=== PATIENT | female | born 1945 | race Caucasian/White ===

== ENCOUNTER → 2020-05-26 | Outpatient (CLI) | payer OTHER, MEDICARE ==
--- NOTE | 2020-05-26 11:49 | RAD ---
EXAM: Hand,Right 3 Views INDICATION: 74 years Female, HAND PAIN COMPARISON: None available FINDINGS: 3 views of the right hand were performed. Osteopenia. No acute fracture is identified. No joint dislocation. No apparent destructive osseous lesion. A 2 mm sclerotic bone fragment is noted at the tip of the ulnar styloid process, either unfused ulnar styloid ossicle or tiny remote fracture. Scattered mild to moderate degenerative changes in the wrist and hand. No gross soft tissue abnormality. No radiopaque foreign body. IMPRESSION: Scattered mild to moderate degenerative changes in the right hand without acute fracture or dislocation. Electronically signed by: Razia Garcia MD 05/26/2020 11:47 AM [facility]
== END ==
LOC: RAD 08:40
PROVIDERS: ATTEND Orthopaedic Surgery
DX: M19.041 Primary osteoarthritis, right hand (principal)

== ENCOUNTER 2020-06-09 05:30 | Day surgery (SDC) | payer MEDICARE, OTHER ==
[2020-06-09] MEDS ORDERED: LIDOCAINE 1% 10 ML VIAL INJ ONE ×2 (05:31→06:34)
[2020-06-09] MEDS ORDERED: PROPOFOL 200 MG/20 ML VIAL IV ONE (05:31)
[2020-06-09] MEDS ORDERED: SODIUM CHL 0.9% 100ML MINI-BAG 100 ML IVPB ONE (06:03)
[2020-06-09] MEDS ORDERED: ceFAZolin SODIUM 1 GM VIAL ONE (06:04)
[2020-06-09] MEDS ORDERED: LACTATED RINGERS 1,000 ML ONE (06:04)
[2020-06-09] MEDS ORDERED: LACTATED RINGERS 1,000 ML IVS ONE (06:28)
[2020-06-09] MEDS ORDERED: BUPIVACAINE 0.25% INJ 30 ML VIAL INJ ONE (06:34)
[2020-06-09] MEDS: VANCOMYCIN HCL INJ 1,000 MG VIAL IVPB ONE ×2 (07:26→07:28)
[2020-06-09] MEDS: ceFAZolin SODIUM 1 GM VIAL ONE ×2 (07:26→07:28)
[2020-06-09 08:33] VITALS: BP 167/89; TEMP 97.5; O2SAT 98
--- NOTE | 2020-06-12 07:59 | OP ---
DATE OF PROCEDURE: 06/09/20 PREOPERATIVE DIAGNOSIS: 1. Carpal tunnel syndrome. POSTOPERATIVE DIAGNOSIS: 1. Carpal tunnel syndrome. PROCEDURE: 1. Carpal tunnel release, right hand. SURGEON: Norris Gant MD. FAST FOOD MANAGER: Sly Burciaga CST, SA-C. ANESTHESIA: Local with sedation. COMPLICATIONS: None. FINDINGS: Thickening of the transverse ligament and narrowing of the median nerve across the carpal tunnel. INDICATION: Ms. Frazier has a history of symptoms consistent with carpal tunnel syndrome. Because of the symptoms and the refractory nature, she requested operative intervention. After discussing the risks, benefits and alternatives to that, the patient has given informed consent for carpal tunnel release. PROCEDURE: The patient was brought to the Operating Room and placed in the supine position. Sedation was administered and local anesthetic was injected into the operative area under sterile conditions. After the injection of anesthetic, the arm was sterilely prepped and draped. A longitudinal incision was made directly overlying the transverse carpal ligament and blunt dissection was carried down to the ligament. The transverse carpal ligament was sharply transected along its length and a [place] elevator was used to ensure complete release of the ligament. Once release had been confirmed, the wound was thoroughly irrigated and the wound was closed with Nylon suture. A sterile dressing was placed and the patient was taken to the Day Surgery Unit. POSTOPERATIVE PLAN: The patient has been encouraged to do range of motion of the digits and will followup with us in two days. #[id number] MTDD
== END 2020-06-09 08:15 | disposition home or self-care (01) ==
LOC: AMB 05:30
PROVIDERS: ATTEND Orthopaedic Surgery
DX: G56.01 Carpal tunnel syndrome, right upper limb (principal); I10 Essential (primary) hypertension; Z79.899 Other long term (current) drug therapy
CPT/HCPCS: 01810; 64721; 80307; 87070; 87077; J0690; J3370; J3490; J7050; J7120

== ENCOUNTER → 2020-07-07 | Outpatient (CLI) | payer OTHER | LOC: GMA MATASK 16:50 | PROVIDERS: ATTEND Family Medicine | DX: E03.9 Hypothyroidism, unspecified (principal); I10 Essential (primary) hypertension ==